=== PATIENT | female | born 1990 | race Caucasian/White ===

== ENCOUNTER 2016-03-15 12:04 | Emergency (ER) | payer BC ==
[2016-03-15 13:26] LABS: BASOPHILS 0.3 % (0.0-2.0); EOSINOPHILS 0.9 % (0-7); HEMATOCRIT 42.3 % (36.0-48.0); HEMOGLOBIN 14.2 g/dL (12-16); IMMATURE GRANULOCYTES 0.4 % (0-5); LYMPHOCYTES 33.6 % (15-50); MCH 31.1 pg (26.0-34.0); MCHC 33.6 g/dL (31.0-37.0); MCV 92.8 fL (80.0-100.0); MEAN PLATELET VOLUME 10.7 fL (7.4-10.4); MONOCYTES 9.2 % (2-11); NEUTROPHILS 55.6 % (40-80); PLATELET COUNT 247 10x3/uL (130-400); RBC 4.56 10x6/uL (4.00-5.40); RDW 12.2 % (11.5-14.5); WBC 13.6 10x3/uL (4.8-10.8)
[2016-03-15 14:22] LABS: ALBUMIN 3.9 g/dL (3.4-5.0); ALKALINE PHOSPHATASE 119 U/L (46-116); ALT (SGPT) 46 U/L (10-68); BILIRUBIN - TOTAL 0.14 mg/dL (0.2-1.3); CALC OSMOLALITY 283 mosm/kg (275-300); CALCIUM 9.5 mg/dL (8.5-10.1); CARBON DIOXIDE 25.5 mmol/L (21.0-32.0); CHLORIDE - SERUM 105 mmol/L (98-107); CREATININE - SERUM 0.7 mg/dL (0.6-1.3); GLUCOSE 106 mg/dL (74-106); POTASSIUM - SERUM 4.6 mmol/L (3.5-5.1); PROTEIN - SERUM 7.6 g/dL (6.4-8.2); SODIUM 142 mmol/L (136-145); UREA NITROGEN 14 mg/dL (7-18); eGFR NON AFRICAN AMERICAN > 90 mL/min (90-120)
[2016-03-15 14:26] LABS: TROPONIN-I < 0.017 ng/mL (0.000-0.060)
== END 2016-03-15 18:09 | disposition left against medical advice (07) ==
LOC: D.ER 12:04
PROVIDERS: Emergency Medicine
DX: R07.9 Chest pain, unspecified (principal)

== ENCOUNTER 2016-04-12 11:11 | Emergency (ER) | payer MEDICAID | END 2016-04-12 12:34 | disposition home or self-care (01) | LOC: D.ER 11:11 | DX: M54.18 Radiculopathy, sacral and sacrococcygeal region (principal); F98.8 Other specified behavioral and emotional disorders with onset usually occurring in childhood and adolescence; F90.9 Attention-deficit hyperactivity disorder, unspecified type; J45.909 Unspecified asthma, uncomplicated; F31.9 Bipolar disorder, unspecified; G40.909 Epilepsy, unspecified, not intractable, without status epilepticus ==

== ENCOUNTER 2016-05-05 11:53 | Emergency (ER) | payer MEDICAID | END 2016-05-05 15:12 | disposition left against medical advice (07) | LOC: D.ER 11:53 | DX: R05 Cough (principal) ==